=== PATIENT | female | born 1960 | race Caucasian/White ===

== ENCOUNTER 2018-03-15 10:28 | Day surgery (SDC) | payer OTHER ==
[2018-03-15] MEDS ORDERED: PROPOFOL 20 ML (12:11)
[2018-03-15] MEDS ORDERED: METOCLOPRAMIDE 10 MG INJ (12:11)
[2018-03-15] MEDS ORDERED: LIDOCAINE 2% (SDV) 5 ML INJ (12:11)
[2018-03-15] MEDS ORDERED: CEFAZOLIN 1 GM INJ (12:11)
[2018-03-15] MEDS ORDERED: ONDANSETRON 4 MG INJ (12:11)
[2018-03-15] MEDS ORDERED: MEPERIDINE 100 MG INJ (12:11)
[2018-03-15] MEDS ORDERED: BUPIVACAINE 0.5%/EPI (SDV) 30 ML INJ (12:35)
[2018-03-15] MEDS: BUPIVACAINE 0.5%/EPI (SDV) 30 ML INJ (12:56)
[2018-03-15] MEDS ORDERED: OXYCODONE/ACETAMINOPHEN (5/325) TAB PO ×2 (13:00)
[2018-03-15] MEDS ORDERED: HYDROmorphONE (0.2 MG/ML) 10ML SYG IV ×3 (13:00)
[2018-03-15] MEDS ORDERED: MEPERIDINE 25 MG INJ IV (13:00)
[2018-03-15] MEDS ORDERED: hydrALAzine 20 MG INJ IV (13:00)
[2018-03-15] MEDS ORDERED: METOCLOPRAMIDE 10 MG INJ IV (13:00)
[2018-03-15] MEDS ORDERED: DIPHENHYDRAMINE 50 MG INJ IV (13:00)
[2018-03-15] MEDS ORDERED: FENTAnyl 50 MCG/ML VIAL IV ×2 (13:00)
[2018-03-15] MEDS ORDERED: LABETALOL HCL 20MG INJ IV (13:00)
[2018-03-15] MEDS ORDERED: MIDAZOLAM 1 MG/ML 2 ML INJ IV (13:00)
[2018-03-15] MEDS ORDERED: EPHEDrine SULFATE 50 MG/5 ML SYG IV (13:00)
[2018-03-15] MEDS: FENTAnyl 50 MCG/ML VIAL IV ×2 (13:20→13:31)
[2018-03-15] MEDS: ONDANSETRON 4 MG INJ IV (13:21)
== END 2018-03-15 14:30 | disposition home or self-care (01) ==
LOC: SDS 10:28
DX: M23.200 Derangement of unspecified lateral meniscus due to old tear or injury, right knee (principal); M23.203 Derangement of unspecified medial meniscus due to old tear or injury, right knee; M94.261 Chondromalacia, right knee
CPT/HCPCS: 29880

== ENCOUNTER 2018-11-27 15:49 | Emergency (ER) | payer OTHER | END 2018-11-27 17:25 | disposition home or self-care (01) | LOC: FTE 15:49 | DX: J20.9 Acute bronchitis, unspecified (principal) | CPT/HCPCS: 99283; Z7502 ==